=== PATIENT | male | born 1975 | race American Indian/Alaskan Native ===

== ENCOUNTER 2018-08-19 21:37 | Emergency (ER) | payer SELFPAY ==
[2018-08-19] MEDS ORDERED: Dextrose 50% SYRINGE Inj (50 ml) ONE (21:45)
[2018-08-19] MEDS ORDERED: Dextrose 50% SYRINGE Inj (50 ml) IVP STA (22:03)
--- NOTE | 2018-08-19 22:08 | ED PDOC ---
Arrival/HPI - General Time Seen by Provider: 08/19/18 21:43 Historian: EMS - History of Present Illness Narrative History of Present Illness (Text): 08/19/18 22:04 A 43 year old male, whose past medical history includes diabetes, brought in by EMS to the emergency department for AMS. Patient's friends noticed patient was unresponsive, so they tried to fee him chocolate but was unable to get a response from patient, so they called the paramedics. Per EMS, when they arrived, patient was still unconscious and they did not perform any intervention. Upon arrival here to the ER, patient responds to voice and makes eye contact when being asked questions, however does not respond to questions. Limited HPI and ROS due to AMS. No PMD Past Medical History - Provider Review Nursing Documentation Reviewed: Yes Family/Social History - Physician Review Nursing Documentation Reviewed: Yes Family/Social History: No Known Family HX Allergies/Home Meds Allergies/Adverse Reactions: Allergies Penicillins Allergy (Verified 08/19/18 21:55) RASH Home Medications: Home Meds Medication Instructions Recorded Confirmed RX: Unobtainable 08/19/18 08/19/18 Review of Systems - Review of Systems Systems not reviewed;Unavailable: Altered Mental Status Physical Exam Vital Signs Reviewed: Yes Vital Signs Temp Pulse Resp BP Pulse Ox 08/19/18 22:00 98.1 F 96 H 16 189/106 H 98 Temperature: Afebrile Blood Pressure: Hypertensive Pulse: Regular Respiratory Rate: Normal Appearance: Positive for: Well-Appearing, Non-Toxic, Comfortable Pain Distress: None Mental Status: Positive for: Alert and Oriented X 3 - Systems Exam Head: Present: Atraumatic, Normocephalic Pupils: Present: PERRL Extroacular Muscles: Present: EOMI Conjunctiva: Present: Normal Mouth: Present: Moist Mucous Membranes Neck: Present: Normal Range of Motion Respiratory/Chest: Present: Clear to Auscultation, Good Air Exchange. No: Respiratory Distress, Accessory Muscle Use Cardiovascular: Present: Regular Rate and Rhythm, Normal S1, S2. No: Murmurs Abdomen: No: Tenderness, Distention, Peritoneal Signs Back: Present: Normal Inspection Upper Extremity: Present: Normal Inspection. No: Cyanosis, Edema Lower Extremity: Present: Normal Inspection. No: Edema Neurological: Present: GCS=15, CN II-XII Intact, Speech Normal Skin: Present: Warm, Dry, Normal Color. No: Rashes Psychiatric: Present: Other (responsive to voice and makes eye contact when being asked questions, however does not respond to questions.) Medical Decision Making ED Course and Treatment: 08/19/18 22:05 Impression: 43 year old male brought in for AMS. Plan: -- Labs -- Dextrose 50% inj -- Reassess and disposition Prior Visits: Notes and results from previous visits were reviewed. Patient was last seen in the emergency department on Progress Notes: 08/19/18 22:06 Nurses did finger stick on patient, reading less than 20. Patient given amp of d50 through IV, to which shortly afterwards patient awoke, and began answering questions. Patient is slow to responding to questions. 08/19/18 23:02 Upon reassessment, patient is awake and alert, feeling much better. Finger stick now at 163. - Lab Interpretations Lab Results: Lab Results 08/19/18 21:41: POC Glucose (mg/dL) < 20 L* I have reviewed the lab results: Yes - Medication Orders Current Medication Orders: Dextrose (Dextrose 50% Inj) 50 ml IVP STAT STA Stop: 08/19/18 22:04 - Scribe Statement The provider has reviewed the documentation as recorded by the Sena Shah Provider Scribe Attestation: All medical record entries made by the Scribe were at my direction and personally dictated by me. I have reviewed the chart and agree that the record accurately reflects my personal performance of the history, physical exam, medical decision making, and the department course for this patient. I have also personally directed, reviewed, and agree with the discharge instructions and disposition. Disposition/Present on Arrival - Present on Arrival Any Indicators Present on Arrival: No History of DVT/PE: No History of Uncontrolled Diabetes: No Urinary Catheter: No History of Decub. Ulcer: No History Surgical Site Infection Following: None - Disposition Have Diagnosis and Disposition been Completed?: Yes Diagnosis: Hypoglycemia associated with diabetes Disposition: HOME/ ROUTINE Disposition Time: 23:01 Patient Problems: Current Active Problems Problem Status Onset Hypoglycemia associated with diabetes Acute Near syncope Acute Condition: STABLE Discharge Instructions (ExitCare): Low Blood Sugar in People With Diabetes Additional Instructions: DIEGO WASHINGTON, thank you for letting us take care of you today. Your provider was Ashley Olson MD and you were treated for AMS. The emergency medical care you received today was directed at your acute symptoms. If you were prescribed any medication, please fill it and take as directed. It may take several days for your symptoms to resolve. Return to the Emergency Department if your symptoms worsen, do not improve, or if you have any other problems. Please contact your doctor or call one of the physicians/clinics you have been referred to that are listed on the Patient Visit Information form that is included in your discharge packet. Bring any paperwork you were given at discharge with you along with any medications you are taking to your follow up visit. Our treatment cannot replace ongoing medical care by a primary care provider outside of the emergency department. Thank you for allowing the [facility] team to be part of your care today. If you had an X-Ray or CT scan: A Radiologist will review the ED reading if any change in treatment is needed we will contact you. If you had a blood, urine, or wound culture: It will take several days for the results, if any change in treatment is needed we will contact you. If you had an STI test: It will take 48 hours for the results. Please call after 1 week if you have not heard back. Forms: [employer] (Kiswahili)
[2018-08-19 22:13] VITALS: TEMP 98.1
[2018-08-19 22:25] LABS: BASO # 0.03 K/mm3 (0.0-2.0); BASO % 0.3 % (0.0-3.0); EOS # 0.1 (0.0-0.7); EOS % 0.5 % (1.5-5.0); GRAN # 6.82 (1.4-6.5); GRAN % 62.1 % (50.0-68.0); HEMOGLOBIN 10.8 g/dL (14.0-18.0); LYMPH # 2.3 (1.2-3.4); LYMPH % 21.1 % (22.0-35.0); MEAN CELL VOLUME 68.5 fl (80.0-105.0); MEAN CORPUSCULAR HEMOGLOBIN 21.4 pg (25.0-35.0); MEAN CORPUSCULAR HGB CONC 31.3 g/dl (31.0-37.0); MONO # 1.8 (0.1-0.6); PLATELET COUNT 207 10^3/uL (120.0-450.0); RBC 5.04 10^6/uL (3.5-6.1); RED CELL DISTRIBUTION WIDTH 22.2 % (11.5-14.5)
[2018-08-19 22:34] VITALS: BMI 24.2
[2018-08-19 22:56] LABS: BLOOD UREA NITROGEN 61 mg/dL (7-21); CALCIUM 9.4 mg/dL (8.4-10.5); GFR NON-AFRICAN AMERICAN 5
[2018-08-19 23:11] VITALS: BP 178/109; PULSE 95; RESP 18
[2018-08-20 01:38] VITALS: O2SAT 97
== END 2018-08-20 01:36 | disposition home or self-care (01) ==
LOC: ED 21:37
DX: E11.649 Type 2 diabetes mellitus with hypoglycemia without coma (principal)

== ENCOUNTER 2018-08-20 00:35 | Emergency (ER) | payer SELFPAY ==
[2018-08-20 00:35] VITALS: BMI 24.2
[2018-08-20 00:56] VITALS: RESP 18
[2018-08-20 01:04] VITALS: TEMP 98.7
--- NOTE | 2018-08-20 01:22 | ED PDOC ---
Arrival/HPI - General Chief Complaint: Weakness/Neurological Deficit Time Seen by Provider: 08/20/18 00:36 Historian: Patient - History of Present Illness Narrative History of Present Illness (Text): 08/20/18 01:25 A 43 year old male, whose past medical history includes diabetes, presents to the emergency department complaining of "syncopal episode". 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 States his mother thought he had a syncopal episode and had called for an ambulance. Patient denies any syncopal, or any other complaints at this time. No PMD Past Medical History - Provider Review Nursing Documentation Reviewed: Yes - Cardiac Hx Hypertension: Yes - Pulmonary Hx Asthma: Yes - Renal Hx Dialysis: Yes Date of Last Dialysis Treatment: 08/18/18 - Endocrine/Metabolic Hx Endocrine Disorders: Yes Hx Diabetes Mellitus Type 1: Yes - Hematological/Oncological Hx Blood Disorders: No - Integumentary Hx Dermatological Disorder: No - Musculoskeletal/Rheumatological Hx Musculoskeletal Disorders: No - Gastrointestinal Hx Gastrointestinal Disorders: No - Genitourinary/Gynecological Hx Genitourinary Disorders: No - Psychiatric Hx Psychophysiologic Disorder: No Hx Substance Use: No - Surgical History Hx Amputation: Yes (partial right foot) - Anesthesia Hx Anesthesia: Yes Family/Social History - Physician Review Nursing Documentation Reviewed: Yes Family/Social History: No Known Family HX Smoking Status: Never Smoked Hx Alcohol Use: No Hx Substance Use: No Allergies/Home Meds Allergies/Adverse Reactions: Allergies Penicillins Allergy (Verified 08/19/18 21:55) RASH Home Medications: Home Meds Medication Instructions Recorded Confirmed RX: Unobtainable 08/19/18 08/19/18 Review of Systems - Physician Review All systems were reviewed & negative as marked: Yes - Review of Systems Constitutional: absent: Fevers, Night Sweats Respiratory: absent: SOB, Cough Cardiovascular: absent: Chest Pain, Palpitations, Syncope Gastrointestinal: absent: Abdominal Pain Genitourinary Male: absent: Dysuria Neurological: absent: Headache, Dizziness Physical Exam Vital Signs Reviewed: Yes Vital Signs Temp Pulse Resp BP Pulse Ox 08/20/18 00:55 98 H 18 180/111 H 97 08/20/18 00:35 98.7 F 80 18 180/111 H 100 Temperature: Afebrile Blood Pressure: Hypertensive Pulse: Regular Respiratory Rate: Normal Appearance: Positive for: Well-Appearing, Non-Toxic, Comfortable Pain Distress: None Mental Status: Positive for: Alert and Oriented X 3 - Systems Exam Head: Present: Atraumatic, Normocephalic Pupils: Present: PERRL Extroacular Muscles: Present: EOMI Conjunctiva: Present: Normal Mouth: Present: Moist Mucous Membranes Neck: Present: Normal Range of Motion Respiratory/Chest: Present: Clear to Auscultation, Good Air Exchange. No: Respiratory Distress, Accessory Muscle Use Cardiovascular: Present: Regular Rate and Rhythm, Normal S1, S2. No: Murmurs Abdomen: No: Tenderness, Distention, Peritoneal Signs Back: Present: Normal Inspection Upper Extremity: Present: Normal Inspection. No: Cyanosis, Edema Lower Extremity: Present: Normal Inspection. No: Edema Neurological: Present: GCS=15, CN II-XII Intact, Speech Normal Skin: Present: Warm, Dry, Normal Color. No: Rashes Psychiatric: Present: Alert, Oriented x 3, Normal Insight, Normal Concentration Medical Decision Making ED Course and Treatment: 08/20/18 01:25 Impression: 43 year old male with no medical complaints. Plan: -- Reassess and disposition Prior Visits: Notes and results from previous visits were reviewed. Patient was last seen in the emergency department on 08/19/2018 for hypoglycemia. Progress Notes: 08/20/18 01:53 Finger stick repeat is 141. Patient has no complaints. Denies syncopal episode. Stable for discharge. - Scribe Statement The provider has reviewed the documentation as recorded by the Sena Shah Provider Scribe Attestation: All medical record entries made by the Sena were at my direction and personally dictated by me. I have reviewed the chart and agree that the record accurately reflects my personal performance of the history, physical exam, medical decision making, and the department course for this patient. I have also personally directed, reviewed, and agree with the discharge instructions and disposition. Disposition/Present on Arrival - Present on Arrival Any Indicators Present on Arrival: No History of DVT/PE: No History of Uncontrolled Diabetes: No Urinary Catheter: No History of Decub. Ulcer: No History Surgical Site Infection Following: None - Disposition Have Diagnosis and Disposition been Completed?: Yes Diagnosis: Near syncope, Hypoglycemia associated with diabetes Disposition: HOME/ ROUTINE Disposition Time: 02:00 Condition: STABLE Discharge Instructions (ExitCare): Low Blood Sugar in People With Diabetes, Near Fainting (DC) Additional Instructions: DIEGO WASHINGTON, thank you for letting us take care of you today. Your provider was Ashley Olson MD and you were treated for SYNCOPE. The emergency medical care you received today was directed at your acute symptoms. If you were prescribed any medication, please fill it and take as directed. It may take several days for your symptoms to resolve. Return to the Emergency Department if your symptoms worsen, do not improve, or if you have any other problems. Please contact your doctor or call one of the physicians/clinics you have been referred to that are listed on the Patient Visit Information form that is included in your discharge packet. Bring any paperwork you were given at discharge with you along with any medications you are taking to your follow up visit. Our treatment cannot replace ongoing medical care by a primary care provider outside of the emergency department. Thank you for allowing the [email or web address] team to be part of your care today. If you had an X-Ray or CT scan: A Radiologist will review the ED reading if any change in treatment is needed we will contact you. If you had a blood, urine, or wound culture: It will take several days for the results, if any change in treatment is needed we will contact you. If you had an STI test: It will take 48 hours for the results. Please call after 1 week if you have not heard back. Forms: [employer] (Macedonian)
[2018-08-20 04:07] VITALS: BP 175/104; PULSE 89; O2SAT 100
--- NOTE | 2018-08-20 07:48 | CARD ---
APPROVED REPORT Date of service: 08/20/2018 EKG Measurement Heart [id number] <Conclusion> Normal sinus rhythm Nonspecific T wave abnormality Prolonged QT LAD
== END 2018-08-20 02:08 | disposition home or self-care (01) ==
LOC: ED 00:35
DX: E11.649 Type 2 diabetes mellitus with hypoglycemia without coma (principal); R55 Syncope and collapse; I10 Essential (primary) hypertension